=== PATIENT | male | born 1950 | race Caucasian/White ===

== ENCOUNTER → 2016-09-17 | Outpatient (CLI) | payer BC ==
--- NOTE | 2016-09-17 14:33 | DIAGNOSTIC IMAGING REPORT ---
KUB HISTORY: K21.9 Gastroesophageal reflux [id number] Bowel habit changesR1 COMPARISON: Abdomen and pelvis CT 03/13/2015. FINDINGS: The bowel gas pattern is unremarkable. There are no dilated loops of small bowel to suggest an obstruction. No ureteral calculi. Calcifications in the deep pelvis likely represent phleboliths. These remain unchanged. Cholecystectomy. The lung bases are clear. There is a 3 mm stone within the lower pole the left kidney. No right renal calculi. No pneumoperitoneum or pneumatosis. IMPRESSION: 1. Unremarkable bowel gas pattern. No evidence for bowel obstruction. 2. Stable left-sided nephrolithiasis. 3. Cholecystectomy. Electronically signed by: Chilo Cardoso M.D. 09/17/2016 2:31 PM Dictated Date/Time: 09/17/2016 2:29 PM
[2016-09-17 15:10] LABS: BLOOD UREA NITROGEN 26 mg/dl (7-18)
[2016-09-22 03:32] LABS: IGA SERUM 110 mg/dL (81-463); TIS TRANS IGA 1 U/mL (<4)
== END | disposition home or self-care (01) ==
LOC: C.RAD1850 13:47
PROVIDERS: ATTEND Registered Nurse
DX: K21.9 Gastro-esophageal reflux disease without esophagitis (principal); R14.0 Abdominal distension (gaseous); R19.4 Change in bowel habit; K42.9 Umbilical hernia without obstruction or gangrene; R10.9 Unspecified abdominal pain

== ENCOUNTER → 2016-11-27 | Outpatient (CLI) | payer BC, MEDICARE, OTHER | END | disposition home or self-care (01) | LOC: C.LABMFLN 09:22 | PROVIDERS: ATTEND Urology | DX: R97.20 Elevated prostate specific antigen [PSA] (principal); N52.9 Male erectile dysfunction, unspecified; N20.0 Calculus of kidney ==

== ENCOUNTER → 2016-12-10 | Outpatient (CLI) | payer MEDICARE ==
[2016-12-10 13:45] LABS: BASO % 0.3 %; BASO ABS # 0.02 K/uL (0-0.2); COMPLETE YES; EOS % 1.7 %; IG% 0.3 %; LYMPH % 21.4 %; LYMPH ABS # 1.47 K/uL (1.2-3.4); MEAN CELL VOLUME 94.4 fL (80-100); MEAN CORPUSCULAR HEMOGLOBIN 32.4 pg (25-34); MEAN CORPUSCULAR HGB CONC 34.3 g/dl (32-36); MEAN PLATELET VOLUME 10.8 fL (7.4-10.4); MONO % 9.9 %; NEUT % 66.4 %; PLATELET COUNT 223 K/uL (130-400); RED BLOOD COUNT 4.45 M/uL (4.7-6.1); WHITE BLOOD COUNT 6.88 K/uL (4.8-10.8)
[2016-12-10 14:11] LABS: BLOOD UREA NITROGEN 20 mg/dl (7-18); BUN/CREATININE RATIO 19.8 (10-20); CARBON DIOXIDE 30 mmol/L (21-32); CHLORIDE 102 mmol/L (98-107); GLUCOSE 105 mg/dl (70-99); POTASSIUM 4.6 mmol/L (3.5-5.1); SODIUM 138 mmol/L (136-145)
[2016-12-10 14:16] LABS: ALB/GLOB RATIO 1.3 (0.9-2); ALKALINE PHOSPHATASE 50 U/L (45-117); ALT/SGPT 32 U/L (12-78); AST/SGOT 26 U/L (15-37)
== END | disposition home or self-care (01) ==
LOC: C.LABMFLN 08:22
PROVIDERS: ATTEND Physician Assistant
DX: R55 Syncope and collapse (principal); R07.9 Chest pain, unspecified

== ENCOUNTER → 2017-06-28 | Outpatient (CLI) | payer MEDICARE | END | disposition home or self-care (01) | LOC: C.LABMFLN 11:13 | PROVIDERS: ATTEND Urology | DX: R97.20 Elevated prostate specific antigen [PSA] (principal) ==

== ENCOUNTER → 2017-07-19 | Outpatient (CLI) | payer MEDICARE ==
[2017-07-19 13:29] LABS: BLOOD UREA NITROGEN 16 mg/dl (7-18); BUN/CREATININE RATIO 13.6 (10-20); CALCIUM 8.7 mg/dl (8.5-10.1); CARBON DIOXIDE 26 mmol/L (21-32); CHLORIDE 102 mmol/L (98-107); CREATININE 1.19 mg/dl (0.60-1.40); GLUCOSE 106 mg/dl (70-99); POTASSIUM 4.6 mmol/L (3.5-5.1); SODIUM 137 mmol/L (136-145)
== END | disposition home or self-care (01) ==
LOC: C.LABMFLN 10:00
PROVIDERS: ATTEND Urology
DX: R97.20 Elevated prostate specific antigen [PSA] (principal); N40.1 Benign prostatic hyperplasia with lower urinary tract symptoms

== ENCOUNTER → 2017-08-31 | Outpatient (CLI) | payer MEDICARE | END | disposition home or self-care (01) | LOC: C.LABMFLN 10:31 | PROVIDERS: ATTEND Urology | DX: R97.20 Elevated prostate specific antigen [PSA] (principal) ==

== ENCOUNTER → 2017-11-02 | Outpatient (CLI) | payer MEDICARE | END | disposition home or self-care (01) | LOC: C.PATHSPEC 16:05 | PROVIDERS: ATTEND Dermatology | DX: L91.8 Other hypertrophic disorders of the skin (principal) ==

== ENCOUNTER → 2018-04-19 | Outpatient (CLI) | payer MEDICARE | END | disposition home or self-care (01) | LOC: C.LABMFLN 12:30 | PROVIDERS: ATTEND Family Medicine | DX: K52.9 Noninfective gastroenteritis and colitis, unspecified (principal) ==

== ENCOUNTER 2019-06-06 10:35 | Observation (INO) ==
--- NOTE | 2019-05-13 14:33 | PAT Medication Instructions ---
Medication Instructions Date of Service May 13, 2019 Home Medications tadalafil 20 mg tablet 20 mg PO UD PRN vitamins capsule 1 cap PO QAM amlodipine 10 mg PO HS aspirin [Aspir-81] 81 mg PO QAM duloxetine 60 mg PO QAM enalapril maleate 20 mg PO QAM finasteride 5 mg PO QAM flecainide 50 mg PO HS lansoprazole 30 mg PO QAM ASK your prescriber and surgeon aspirin [Aspir-81] 81 mg PO QAM DO NOT take the morning of surgery tadalafil 20 mg tablet 20 mg PO UD PRN vitamins capsule 1 cap PO QAM enalapril maleate 20 mg PO QAM Take morning of surgery With a small sip of water, OTHERWISE NOTHING TO EAT OR DRINK AFTER MIDNIGHT: duloxetine 60 mg PO QAM finasteride 5 mg PO QAM lansoprazole 30 mg PO QAM Take evening before surgery tadalafil 20 mg tablet 20 mg PO UD PRN (if needed) amlodipine 10 mg PO HS flecainide 50 mg PO HS Other Notes If you have any questions please call us at [phone] or [phone] or [phone] or [phone]
--- NOTE | 2019-05-15 10:36 | Anesthesiology Consultation ---
Date of Service May 15, 2019 Assessment & Plan (1) Encounter for pre-operative examination: Chart Review Chart Review: Acceptable Risk for Surgery (pending most recent cardiology office visit note) and Patient seen in Pre Admission Testing Teaching & Discussion Pre-Anesthesia Teaching/Discussion Notes: Instructed NPO after midnight before surgery,except medications with 15 cc of water. Medication instructions provided according to the PAT guidelines. History Surgery Operation Date: 06/06/19 07:30 Proposed Procedures p Transurethral Resection of the Prostate - José Campos MD Height/Weight Height: 6 ft 1 in Weight: 109.7 kg Allergies Allergy/AdvReac Type Severity Reaction Status Date / Time No Known Drug Allergies Allergy Unverified 05/15/19 09:23 Medications Home Medications Medication Instructions Recorded Confirmed Last Taken tadalafil 20 mg tablet 20 mg PO UD PRN tab 02/15/19 05/15/19 Unknown vitamins A,C,K-hlon-toyndn 14,320 1 cap PO QAM cap 02/15/19 05/15/19 05/05/19 unit-226 mg-200 unit capsule amlodipine 10 mg PO HS 05/05/19 05/15/19 05/04/19 aspirin [Aspir-81] 81 mg PO QAM 05/05/19 05/15/19 05/05/19 duloxetine 60 mg PO QAM 05/05/19 05/15/19 05/05/19 enalapril maleate 20 mg PO QAM 05/05/19 05/15/19 05/05/19 finasteride 5 mg PO QAM 05/05/19 05/15/19 05/05/19 flecainide 50 mg PO HS 05/05/19 05/15/19 05/04/19 lansoprazole 30 mg PO QAM 05/05/19 05/15/19 05/05/19 Past Medical History Medical History Asthma stable 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 Borderline high cholesterol Bradycardia chronic CAD (coronary artery disease) "minimal" CAD on 2011 cardiac cath per cardiology records Gastroesophageal reflux disease controlled History of blood clots LLE DVT (1975)- s/p AC "for short time" Hypertension Lung nodule multiple under surveillance Near syncope hx (2017) s/p Zio monitor with Zio monitor 04/2018 (4% of all beats were PVCs and did have a few episodes of junctional rhythm as well as PSVT- per cardiology records); no issues x 9+ months Nephrolithiasis Obesity PVC (premature ventricular contraction) Sick sinus syndrome per cardiology records Sleep apnea CPAP Exercise / Class Metabolic Activity III < 4 Walking/Shop/Light housework Past Family History Family History Mother Breast cancer Hypertension Father Hypertension Grandmother Colorectal cancer Grandfather Myocardial infarction Uncle Myocardial infarction Other Family history of COPD (chronic obstructive pulmonary disease) Past Surgical History Surgical History History of cardiac cath 2011= NO STENTS History of cholecystectomy History of colonoscopy History of endoscopy History of hernia repair B/L INGUINAL + REVISION History of neck surgery right cervical lymph node dissection History of tonsillectomy and adenoidectomy Past Anesthesia History No Hx of Anesthesia Complications and No Family Hx of Anesthesia Complications History of PONV No Hx of PONV and No Hx of Motion Sickness Social History Smoking Status: Current every day smoker tobacco type: cigarettes Smoking cigarettes per day: 1.5 PPD (PREVIOUSLY QUIT SINCE 1975, RECENTLY RESTARTED) Do You Dip or Chew Tobacco: No Hx Alcohol Use: Yes Alcohol type: beer and hard liquor alcohol intake frequency: a few times a week Hx Substance Use: No substance use type: does not use Review of Systems Chronic non-productive cough, unchanged. Reflux controlled. Patient denies chest pain, shortness of breath, wheezing, palpitations. Physical Exam Vital Signs VITALS BP 136/86 P 57 TEMP 97.8 SP02 99%RA RESP 18 PHYSICAL Full neck and c-spine range of motion. Full TMJ range of motion. TMD 3 finger breaths Mallampati Score 1 Dentition: intact, upper front "repaired" prior chipped teeth Lungs: clear throughout to auscultation Cardiac: regular rate and rhythm, no murmurs noted Spine: normal Carotid arteries: negative bruit Extremities: no edema Trimmed zeng Testing Laboratory Results 05/15/19 10:51 05/15/19 10:51 Urine Color Yellow 05/15/19 10:44 Urine Appearance Cloudy (Clear) A 05/15/19 10:44 Urine pH 7.5 (4.5-7.5) 05/15/19 10:44 Ur Specific [place] 1.019 (1.000-1.030) 05/15/19 10:44 Urine Protein Negative (Negative) 05/15/19 10:44 Urine Glucose (UA) Negative (Negative) 05/15/19 10:44 Urine Ketones Negative (Negative) 05/15/19 10:44 Urine Nitrite Positive (Negative) A 05/15/19 10:44 Ur Leukocyte Esterase Trace (Negative) H 05/15/19 10:44 Urine WBC (Auto) 10-30 /hpf (0-5) H 05/15/19 10:44 Urine RBC (Auto) 0-4 /hpf (0-4) 05/15/19 10:44 U Hyaline Cast (Auto) 0 /lpf (0-5) 05/15/19 10:44 U Epithel Cells (Auto) 0-5 /lpf (0-5) 05/15/19 10:44 Urine Bacteria (Auto) 3+ (Negative) H 05/15/19 10:44 Electrocardiogram Date: 06/25/18 SB with first degree AVB at 50bpm. Cannot rule out inferior infarct, age undetermined. Prolonged QT.* NS TWA. Chest X-Ray Date: 05/15/19 Findings: + NAD Stress Test Date: 06/02/18 Type: nuclear (Lexiscan) "Normal" Lexiscan, myocardial perfusion stress test. LVEF 65%. 68% MPHR.
--- NOTE | 2019-05-15 11:20 | XRay Report ---
XR chest Pre-admission PA/Lat CLINICAL HISTORY: Preoperative chest COMPARISON STUDY: 07/05/2013 FINDINGS: The cardiac and mediastinal contours are normal. There is no evidence of focal pulmonary co nsolidation. There is no evidence of failure. No pleural effusions are visualized.[ IMPRESSION: No active disease in the chest. Electronically signed by: Michel Francisco M.D. 05/15/2019 11:18 AM
[2019-05-15 11:33] LABS: Basophils # (auto) 0.03 K/uL (0-0.2); Basophils % (auto) 0.3 %; Eosinophils # (auto) 0.24 K/uL (0-0.5); Eosinophils % (auto) 2.6 %; Hemoglobin 15.2 g/dL (14.0-18.0); Immature Granulocytes # (auto) 0.02 K/uL (0.00-0.02); Immature Granulocytes % (auto) 0.2 %; Lymphocytes # (auto) 1.71 K/uL (1.2-3.4); Lymphocytes % (auto) 18.6 %; Mean Corpuscular Hemoglobin 33.3 pg (25-34); Mean Corpuscular Hgb Conc 33.8 g/dL (32-36); Mean Corpuscular Volume 98.5 fL (80-100); Mean Platelet Volume 11.4 fL (7.4-10.4); Monocytes # (auto) 0.64 K/uL (0.11-0.59); Neutrophils # (auto) 6.55 K/uL (1.4-6.5); Neutrophils % (auto) 71.3 %; Platelet Count 218 K/uL (130-400); RDW Coefficient of Variation 13.5 % (11.5-14.5); RDW Standard Deviation 48.3 fL (36.4-46.3); Red Blood Count 4.57 M/uL (4.7-6.1); White Blood Count 9.19 K/uL (4.8-10.8)
[2019-05-15 11:35] LABS: Appearance Urine Cloudy (Clear); Bacteria Urine Automated 3+ (Negative); Bilirubin Urine Negative (Negative); Blood Urine Negative (Negative); Cast Urine Automated 0 /lpf (0-5); Color Urine Yellow; Epithelial Cell Urine Auto 0-5 /lpf (0-5); Glucose Urine UA Negative (Negative); Ketones Urine Negative (Negative); Leukocyte Esterase Urine Trace (Negative); Nitrite Urine Positive (Negative); Protein Urine Negative (Negative); RBC Urine Automated 0-4 /hpf (0-4); Specific Gravity Urine 1.019 (1.000-1.030); Urobilinogen Urine Negative (Negative); pH Urine 7.5 (4.5-7.5)
[2019-05-15 11:57] LABS: BUN Creatinine Ratio 18.7 (10-20); Calcium 8.9 mg/dl (8.5-10.1); Creatinine Clr Calc Pharmacy 110.8 ml/min; Est GFR (Non-African American) 90.6; Potassium 4.6 mmol/L (3.5-5.1)
[~2019-06-06 10:35] MED LIST: GENTAMICIN SULFATE 160 MG in DEXTROSE 5% 100 ML IV SCH; LR 15ML/HR IV SCH
[2019-06-06] MEDS ORDERED: MIDAZOLAM HCL 1 MG/ML 2ML VIAL ONE (11:40)
[2019-06-06] MEDS ORDERED: ONDANSETRON INJ 2 MG/ML 2 ML VIAL ONE (11:40)
[2019-06-06] MEDS ORDERED: PROPOFOL IV EMULSION 10 MG/ML 20 ML VIAL IV ONE ×2 (11:40→12:58)
[2019-06-06] MEDS ORDERED: LIDOCAINE HCL 2% 2 ML VIAL/AMP(20MG/ML) INFIL ONE (11:40)
[2019-06-06] MEDS ORDERED: fentaNYL citrate 100 MCG/2 ML VIAL ONE ×2 (11:40→12:58)
[2019-06-06] MEDS ORDERED: DEXAMETHASONE SOD INJ 4 MG/ML VIAL ONE (11:40)
--- NOTE | 2019-06-06 12:09 | History & Physical Bridge Note ---
Date of Service June 06, 2019 History & Physical Bridge Note I have examined the patient, reviewed the History & Physical and in the interval since the performance of the History & Physical I have noted the following changes of clinical significance: no changes noted
[2019-06-06] MEDS ORDERED: ePHEDrine sulfate 50 MG/ML AMP IV PRN (12:11)
[2019-06-06] MEDS ORDERED: ATROPINE SULFATE 0.1 MG/ML 10ML SYR IV PRN (12:11)
[2019-06-06] MEDS ORDERED: FLUMAZENIL 0.1 MG/1 ML 10 ML VIAL IV PRN (12:11)
[2019-06-06] MEDS ORDERED: PROMETHAZINE HCL 12.5 MG in SODIUM CHLORIDE 0.9% 50 ML IV PRN (12:11)
[2019-06-06] MEDS ORDERED: LABETALOL HCL IV 5 MG/ML 20ML IV PRN (12:11)
[2019-06-06] MEDS ORDERED: NALOXONE HCL 0.4 MG/1 ML VIAL/CARP IV PRN (12:11)
[2019-06-06] MEDS ORDERED: ONDANSETRON INJ 2 MG/ML 2 ML VIAL IV PRN (12:11)
--- NOTE | 2019-06-06 14:08 | Post Operative Brief Note ---
PG Immediate Post Op with CF Date of Surgery June 06, 2019 Pre & Post Diagnosis Operation Date: 06/06/19 12:15 Pre-Op Diagnosis: Beinign Prostatic Hyperplasia with Obstruction Post-Op Diagnosis: Beinign Prostatic Hyperplasia with Obstruction Procedure Operation Date: 06/06/19 12:15 Actual Procedures p Transurethral Resection of the Prostate(Not Applicable) - José Campos MD Surgeon José Campos MD Grain Processor none Estimated Blood Loss 100 Findings Consistent with Post-Op Diagnosis Specimens Specimen Description: A: prostate chips
[2019-06-06] MEDS ORDERED: ACETAMINOPHEN 1,000 MG/100 ML VIAL IV PRN (14:09)
[2019-06-06] MEDS ORDERED: OXYCODONE/ACETAMINOPHEN 5mg/325mg TAB PO PRN (14:09)
[2019-06-06] MEDS: fentaNYL citrate 100 MCG/2 ML VIAL IV PRN ×4 (14:26→14:41)
--- NOTE | 2019-06-06 15:11 | Anesthesiology Progress Note ---
Date of Service June 06, 2019 Anesthesia Post Procedure Vital Signs Vital Signs: Temp Pulse Pulse Resp BP Pulse Ox 06/06/19 15:00 36.6 C 67 15 119/82 98 06/06/19 14:50 36.6 C 54 L 16 132/81 92 06/06/19 14:40 36.9 C 53 L 11 L 130/81 94 06/06/19 14:30 36.9 C 57 L 15 149/76 H 91 06/06/19 14:20 36.9 C 57 L 20 138/78 92 06/06/19 14:13 36.9 C 75 16 133/81 87 L 06/06/19 11:05 36.8 C 56 L 18 154/83 H 97 Pain Intensity Penis: Pain Intensity: 2 Transfer of Care Handoff Completed per policy Notes Mental Status: alert / awake / arousable Patient Amnestic to Procedure: Yes Nausea / Vomiting: adequately controlled Pain: adequately controlled Airway Patency, RR, SpO2: stable & adequate BP & HR: stable & adequate Hydration State: stable & adequate Anesthetic Complications: no major complications apparent
[2019-06-06] MEDS ORDERED: LACTATED RINGER'S 1,000 ML IV ONE (16:00)
--- NOTE | 2019-06-06 16:54 | Operative Report ---
DATE OF OPERATION: 06/06/2019 PREOPERATIVE DIAGNOSIS: Benign prostatic hypertrophy. POSTOPERATIVE DIAGNOSIS: Benign prostatic hypertrophy. SURGEON: José Campos MD. ANESTHESIA: General. PROCEDURE: TURP. INDICATIONS: The patient is a 68-year-old male with significant obstructive and irritative voiding symptoms with a large ball valve prostate with significant trabeculation of his bladder, here for a TURBT. DESCRIPTION OF THE PROCEDURE: The patient was taken to the operating room, had Venodyne stockings placed and was given general anesthesia and was given preoperative ciprofloxacin. Initially, cystoscopy was done. He had a very high bladder neck. Then, the 24-Anguillan resectoscope was placed and the ball valve was resected. Then using a combination of resection and button to fulgurate tissue, a channel from the verumontanum into the bladder was resected. At the end of the procedure, there was a clear channel from the verumontanum into the bladder without significant bleeding. All bleeding points were cauterized and then using a catheter guide, a 22-Anguillan catheter with 30 mL balloon was placed and the patient was transferred to the recovery room in stable condition with clear urine. I attest to the content of the Intraoperative Record and any orders documented therein. Any exception s are noted below.
[2019-06-06] MEDS ORDERED: ACETAMINOPHEN 325 MG TAB PO PRN (19:20)
[2019-06-06] MEDS ORDERED: INFLUENZA ADMINISTRATION CHARGE ONE (19:45)
[2019-06-06] MEDS ORDERED: INFLUENZA VACCINE HIGH DOSE 65+ 0.5 ML SYR IM ONE (19:45)
[2019-06-06] MEDS ORDERED: FLECAINIDE ACETATE 100 MG TABLET PO SCH (21:00)
[2019-06-06] MEDS ORDERED: AMLODIPINE BESYLATE 5 MG TAB PO SCH (21:00)
[2019-06-07 07:30] VITALS: BP 168/90; PULSE 59; TEMP 97.9; O2SAT 92
[2019-06-07] MEDS ORDERED: ASPIRIN 81 MG ECTAB PO SCH (09:00)
[2019-06-07] MEDS ORDERED: ENALAPRIL MALEATE 10 MG TAB PO SCH (09:00)
[2019-06-07] MEDS ORDERED: PANTOprazole 40 MG TAB PO SCH (09:00)
[2019-06-07] MEDS ORDERED: DULOXETINE HCL 60 MG CAP PO SCH (09:00)
--- NOTE | 2019-06-07 09:14 | Urology Progress Note ---
Date of Service June 07, 2019 Assessment & Plan (1) Urinary incontinence: 68 YO male POD #1 s/p TURP. Feeling well, tolerating Lin. No gross hematuria noted. Expected post op recovery and instructions reviewed. Maintain Lin until outpatient trial of void on Wednesday. Will coordinate discharge. (2) BPH w urinary obs/LUTS: Subjective 68 YO male POD #1 s/p TURP. Patient reports feeling well this morning. No pain. No nausea/vomiting. No fevers/chills. Reports Lin is minimally bothersome. Review of Systems Review of Systems: Per HPI. Physical Exam Physical Exam: WN/WD NAD. Resp effort normal. No JVD. Abd nondistended. : Lin in place, patent, draining concentrated yellow urine. No gross hematuria noted. A&Ox3, appropriate affect. Results & Data Vital Signs (Past 12 Hours) Vital Signs Temp Pulse Resp BP Pulse Ox 06/07/19 07:28 36.6 C 59 L 18 168/90 H 92 06/07/19 03:11 36.8 C 54 L 16 132/75 93 06/06/19 23:50 36.7 C 56 L 16 116/72 96 PG Care Time/CCT Total # of Minutes Spent Total Time Spent with Patient: Total time spent is greater than 50% in coordination of care (as documented) at patient's floor/unit and/or counseling patient:
--- NOTE | 2019-06-19 22:13 | Discharge Summary ---
REASON FOR ADMISSION: Benign prostatic hypertrophy for TURP. HISTORY OF PRESENTATION AND HOSPITAL COURSE: The patient is a 68-year-old male who was admitted for a transurethral resection of the prostate which was performed without complication. The patient did well overnight after the procedure with relatively clear urine. On the day of the discharge, next day, the urine was pink. He was discharged to home in stable condition with a Lin catheter in place and instructions to follow up the following day and to call for problems.
== END 2019-06-07 12:08 | disposition home or self-care (01) ==
LOC: ASU 10:35 → 3W 10:35
DX: Z82.49 Family history of ischemic heart disease and other diseases of the circulatory system; E78.00 Pure hypercholesterolemia, unspecified; K21.9 Gastro-esophageal reflux disease without esophagitis; R32 Unspecified urinary incontinence; N40.1 Benign prostatic hyperplasia with lower urinary tract symptoms; I10 Essential (primary) hypertension; Z79.82 Long term (current) use of aspirin; J45.909 Unspecified asthma, uncomplicated; G47.30 Sleep apnea, unspecified; Z79.899 Other long term (current) drug therapy

== ENCOUNTER 2024-05-30 16:14 | Observation (INO) ==
--- NOTE | 2024-05-30 16:44 | Emergency Department Note ---
Impression & Plan Chest pain, Aneurysm of ascending aorta ED Provider Note NAME: ARIANNA MARSHALL Jr AGE: 73 SEX: M : 1950 ARRIVES VIA: Walk-In INFORMANT: Patient, ED PROVIDER(S): Dante Alvarez DO CHIEF COMPLAINT: Chest pain HPI: The patient is a 73-year-old male who presented to the emergency department for an evaluation of chest pain. The patient describes left-sided chest pain that he has been experiencing over the last few months. The patient has a history of an aortic aneurysm he also has a history of an incompetent heart valve. He had an echocardiogram done by his dry pan charger today and was sent to the emergency department directly but he is unsure exactly why. The patient thinks he was sent to be admitted. ROS: See above HPI for pertinent positives & negatives. A total of 10 systems reviewed and were otherwise negative. PAST MEDICAL HISTORY: See Below PAST SURGICAL HISTORY: See Below FAMILY HISTORY: See Below SOCIAL HISTORY: See Below HOME MEDICATIONS: See Below ALLERGIES: See Below VITALS: See Below PHYSICAL EXAMINATION: GENERAL: Patient is awake alert in no acute distress patient is resting comfortably and showing no signs of anxiety EYES: The conjunctivae are clear. The pupils are round and reactive. EARS, NOSE, MOUTH AND THROAT: The nose is without any evidence of any deformity. NECK: The neck is nontender and supple. RESPIRATORY: Normal respiratory effort is noted there is no evidence of wheezing rhonchi or rales CARDIOVASCULAR: Regular rate and rhythm noted there no murmurs rubs or gallops normal S1 normal S2. GASTROINTESTINAL: The abdomen is soft. Abdomen is nontender. MUSCULOSKELETAL/EXTREMITIES: There is no evidence of gross deformity full range of motion is noted in the hips and shoulders. SKIN: There is no obvious evidence of any rash. There are no petechiae, pallor or cyanosis noted. Pulses are symmetric in both wrist. NEUROLOGIC: Patient is awake alert and oriented x3 MEDICAL DECISION MAKING: The patient is a 73-year-old male who presented to the emergency department at the request of his primary dry pan charger for an evaluation of chest pain. The patient has a history of chest pain in the past. He also has a history of an ascending aortic aneurysm. The patient started having discomfort which was changed compared to previous. The patient received an echocardiogram today and was referred to the emergency department for further evaluation. I discussed the patient's condition with his primary dry pan charger. I also discussed his condition with the on-call [facility]. At this time the patient's EKG does not show any acute change from previous. The patient's CAT scan does not show any signs of aortic dissection or rupture. The patient's troponin was negative despite having ongoing symptoms for greater than 6 hours. I discussed inpatient management at the patient. At this time I do feel that he would be a better candidate for inpatient management. Likely his primary dry pan charger will look to have him evaluated regarding the ascending aortic aneurysm. Triage Nursing notes reviewed. Prior medical records reviewed Vital Signs: reviewed and remarkable for no significant abnormalities Differential diagnosis: Cardiac ischemia, aortic dissection, pulmonary embolism, pneumothorax, pneumonia, pericarditis, myocarditis, esophageal rupture, GERD, cholecystitis, pancreatitis, musculoskeletal, as well as other pathologies. ER treatment provided: See below Diagnostics interpreted by me: ECG: EKG was obtained in the emergency department. My interpretation is sinus bradycardia with first-degree AV block. There is no ectopy. There is no acute ST segment abnormalities noted. This was carried to a tracing from June 18, 2013. No changes were noted. Cardiac Monitoring: An order was placed for continuous cardiac monitoring. The monitor shows a rate of 51 bpm with sinus bradycardia. Laboratory studies: As stated above and show below. Imaging studies: See below. Radiographic imaging was reviewed by myself Consultation(s): I discussed this case with Dr. Bowser [facility]. I discussed this case with Dr. Spann who is the patient's primary dry pan charger Past Med/Surg History Problem List (Updated 05/30/24 @ 23:46 by Dante Alvarez DO) Aneurysm of ascending aorta (Acute) Chest pain (Acute) Tobacco use Hypercholesterolemia Aortic valve insufficiency Lumbago Thoracic compression fracture Mild T8 Myofascial muscle pain Thoracic back pain Lesion of right [place] kidney Diverticulosis Diarrhea Abdominal distension Left upper quadrant pain Cyst, sinus nasal Cervicalgia Headache Chest pain Thoracic aortic aneurysm Erectile dysfunction Nephrolithiasis Fatigue Body aches Cough Nasal congestion Elevated glucose Cataracts, bilateral Preoperative examination TMJ (temporomandibular joint disorder) Otalgia Impacted cerumen, right ear Laura's edema of vocal folds Seasonal allergies Cough Sinusitis Sleep apnea CPAP Hypertension Gastroesophageal reflux disease controlled Sharif esophagus Bradycardia chronic Sick sinus syndrome per cardiology records Asthma stable BPH w urinary obs/LUTS Urge incontinence of urine DENIES Impotence, organic NOT REPORTED BY PT AT PAT INTERVIEW Yoandy's disease DENIES Exudative age-related macular degeneration NOT REPORTED BY PT Elevated prostate specific antigen (PSA) Dermatofibroma Anxiety Allergic rhinitis Actinic keratosis Family history of COPD (chronic obstructive pulmonary disease) History of back pain History of chest pain History of cholesteatoma History of hyperlipidemia Medical History History of diverticulitis CAD (coronary artery disease) "minimal" CAD on 2011 cardiac cath per cardiology records Obesity Borderline high cholesterol Lung nodule multiple under surveillance History of blood clots LLE DVT (1975)- s/p AC "for short time" Near syncope hx (2017) s/p Zio monitor with Zio monitor 04/2018 (4% of all beats were PVCs and did have a few episodes of junctional rhythm as well as PSVT- per cardiology records); no issues x 9+ months Larynx edema BPH with obstruction/lower urinary tract symptoms Nephrolithiasis PVC (premature ventricular contraction) Surgical History S/P TURP (status post transurethral resection of prostate) 06/06/[address] José Campos History of cardiac cath 2011= NO STENTS History of endoscopy History of colonoscopy History of cholecystectomy History of tonsillectomy and adenoidectomy History of neck surgery right cervical lymph node dissection History of hernia repair B/L INGUINAL + REVISION Family History Mother Breast cancer Hypertension Father Hypertension Grandmother Colorectal cancer Grandfather Myocardial infarction Uncle Myocardial infarction Other Allergies Cancer Family history of COPD (chronic obstructive pulmonary disease) No family history of adverse response to anesthesia No family history of bleeding disorder Denies family history of Ovarian cancer Prostate cancer Social History Smoking Status: Current every day smoker Tobacco Type: Cigarettes Age Started Using Tobacco: 16; Age Quit Using Tobacco: 23; packs per day: 1; Cigarettes Per Day: 10 (past 7 years); Second Hand Exposure: No; Do You Dip or Chew Tobacco: No; Hx Alcohol Use: Yes Alcohol type: beer and hard liquor Hx Substance Use: No Preferred Language: Samoan Communication Ability: Effective Visual Impairment: Limited Hearing Ability: Normal Beauty Advisor Required: No Beliefs That Will Affect Care: None marital status: Single Current Living Situation: Spouse Current Living Situation Comment: [facility] current occupational status: retired 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 How many Children do You have: 3 Feels Safe at Home: Yes Safety Concerns: Feels Safe At This Time Childhood Exposure to Second-Hand Smoke: Yes Diet: low carbohydrate and regular caffeine: Yes (coffee - 2 cups) during the past year weight has: increased > 10 lbs Dental Care, Regularly: No Physical Activity Frequency: 1-2 Times per Week Physical Activity Frequency Comment: When weather permits walking Seatbelt Use: always Sunscreen Use: Yes Do you think of yourself as: straight/heterosexual Gender Identity: Male Assistive Devices: Glasses Allergies Allergies Allergy/AdvReac Type Severity Reaction Status Date / Time No Known Drug Allergies Allergy Unknown Verified 05/30/24 16:51 Home Meds Home Medications Medication Instructions Recorded Confirmed aspirin 81 mg tablet,delayed 81 mg PO DAILY 09/13/19 05/30/24 release (Adult Low Dose Aspirin) fexofenadine 180 mg tablet 60 mg PO DAILY 02/13/22 05/30/24 (Aleshia Allergy) vitamins A,C,W-bsna-bhcfpr 4,296 1 cap PO BID 04/19/24 05/30/24 mcg-226 mg-90 mg capsule (PreserVision AREDS) atorvastatin 10 mg tablet 10 mg PO DAILY 05/30/24 05/30/24 duloxetine 60 mg capsule,delayed 60 mg PO DAILY 05/30/24 05/30/24 release Previous Rx's Medication Instructions Recorded albuterol sulfate 90 mcg/actuation 2 puff inhalation QID PRN 11/01/20 aerosol inhaler shortness of breath or wheezing #18 grams baclofen 10 mg tablet 10 mg PO BID PRN pain/spasm #60 03/19/23 tabs amlodipine 10 mg tablet 10 mg PO HS #90 tabs 12/14/23 buspirone 7.5 mg tablet 7.5 mg PO BID #60 tabs 12/14/23 famotidine 20 mg tablet 20 mg PO BID #60 tabs 12/14/23 hydrochlorothiazide 25 mg tablet 25 mg PO DAILY #90 tabs 12/14/23 lansoprazole 30 mg capsule,delayed 30 mg PO QAM #90 caps 12/14/23 release losartan 100 mg tablet 100 mg PO DAILY #90 tabs 12/14/23 montelukast 10 mg tablet 10 mg PO DAILY #90 tabs 12/14/23 metoprolol succinate 25 mg 25 mg PO DAILY #90 tabs 04/11/24 tablet,extended release 24 hr tadalafil 20 mg tablet 20 mg PO DAILY PRN sexual activity 04/17/24 #20 tabs Results & Data (ED) Vital Signs Vital Signs - 24 hr 05/30/24 16:25 05/30/24 16:45 05/30/24 16:47 Temperature 36.5 C Temperature Source Temporal Artery Scan Pulse Rate 57 L 52 L Pulse Rate [Apical] 51 L Pulse Rhythm Regular Pulse Rhythm [Apical] Regular Pulse Strength [Apical] Respiratory Rate 14 20 20 Respiratory Effort / Characteristics Non-Labored Spontaneous Respiratory Depth Normal Respiratory Pattern Regular Blood Pressure 107/69 Blood Pressure [Right Arm] 151/84 H Blood Pressure Mean 81 Blood Pressure Mean [Right Arm] 106 Blood Pressure Position [Right Arm] Pulse Oximetry 99 98 97 Oxygen Delivery Method Room Air Room Air Room Air Sepsis New/Unexplained Change in Mental Status No Sepsis Action Taken by Nursing No Action Required 05/30/24 17:02 05/30/24 17:39 05/30/24 17:45 Temperature Temperature Source Pulse Rate 56 L Pulse Rate [Apical] 56 L 49 L Pulse Rhythm Pulse Rhythm [Apical] Regular Pulse Strength [Apical] Normal Respiratory Rate 18 22 Respiratory Effort / Characteristics Non-Labored Spontaneous Respiratory Depth Normal Respiratory Pattern Regular Blood Pressure Blood Pressure [Right Arm] 146/98 H 143/88 H Blood Pressure Mean Blood Pressure Mean [Right Arm] 114 106 Blood Pressure Position [Right Arm] Lying Pulse Oximetry 97 95 Oxygen Delivery Method Room Air Sepsis New/Unexplained Change in Mental Status Sepsis Action Taken by Nursing 05/30/24 18:43 Temperature Temperature Source Pulse Rate Pulse Rate [Apical] 49 L Pulse Rhythm Pulse Rhythm [Apical] Pulse Strength [Apical] Respiratory Rate 20 Respiratory Effort / Characteristics Non-Labored Spontaneous Respiratory Depth Normal Respiratory Pattern Blood Pressure Blood Pressure [Right Arm] 153/86 H Blood Pressure Mean Blood Pressure Mean [Right Arm] 108 Blood Pressure Position [Right Arm] Pulse Oximetry 98 Oxygen Delivery Method Room Air Sepsis New/Unexplained Change in Mental Status Sepsis Action Taken by Jail Medications Current Medication List: was personally reviewed by me Laboratory Data Attestation: I reviewed the patient's lab results. 05/30/24 16:40 05/30/24 16:40 Lab Results 05/30/24 05/30/24 Range/Units 16:40 16:57 WBC 10.61 (4.8-10.8) K/ul RBC 4.74 (4.70-6.10) M/uL Hgb 15.9 (14.0-18.0) g/dl POC Hgb 16.0 (14.0-18.0) g/dl Hct 45.5 (42.0-52.0) % POC Hct 47 (42-52) % MCV 96.0 (80.0-100.0) fL MCH 33.5 (25.0-34.0) pg MCHC 34.9 (32.0-36.0) g/dL RDW Std Deviation 45.1 (36.4-46.3) fL RDW Coeff of Guillermo 12.6 (11.5-14.5) % Plt Count 237 (130-400) K/uL MPV 11.3 (9.4-12.4) fL Immature Gran % (Auto) 0.5 % Neut % (Auto) 63.3 % Lymph % (Auto) 23.2 % [place] % (Auto) 8.3 % Eos % (Auto) 4.2 % Baso % (Auto) 0.5 % Neut # (Auto) 6.72 H (1.40-6.50) K/uL Lymph # (Auto) 2.46 (1.20-3.40) K/uL [place] # (Auto) 0.88 H (0.11-0.59) K/uL Eos # (Auto) 0.45 (0.00-0.50) K/uL Baso # (Auto) 0.05 (0.00-0.20) K/uL Immature Gran # (Auto) 0.05 (0.01-0.20) K/uL PT 10.4 (9.0-12.0) Seconds INR 1.0 (0.9-1.1) APTT 27 (21-31) Seconds PTT Ratio 1.0 POC Sodium 139 (135-144) mmol/L Sodium 138 (136-145) mmol/L POC Potassium 4.1 (3.3-5.0) mmol/L Potassium 3.9 (3.5-5.1) mmol/L POC Chloride 98 L (101-112) mmol/L Chloride 100 (98-107) mmol/L Carbon Dioxide 30 (21-32) mmol/L POC Total CO2 30 (24-31) mmol/L Anion Gap 8 (3-11) POC Anion Gap 16.0 (16-25) mmol/L POC BUN 15 (7-18) mg/dl BUN 14 (6-23) mg/dl Creatinine 0.98 (0.6-1.4) mg/dl POC Creatinine 1.1 (0.6-1.3) mg/dl Est Cr Clr Drug Dosing 93.4 ml/min Est GFR ( Amer) 88.9 ml/min Est GFR (Non-Af Amer) 76.7 ml/min BUN/Creatinine Ratio 14.3 (10-20) Glucose 97 (70-99(Fasting)) mg/dl POC Glucose (other) 96 (70-99) mg/dl Calcium 9.4 (8.6-10.3) mg/dl POC Ioniz Calcium Kemar 1.13 (1.12-1.32) mmol/l Total Bilirubin 0.9 (0.2-1.0) mg/dl AST 24 (13-39) U/L ALT 26 (7-52) U/L Alkaline Phosphatase 65 (34-104) U/L Troponin I High Sens 13.1 (0-20) pg/ml Total Protein 7.0 (6.0-8.3) gm/dl Albumin 4.7 (3.4-5.0) gm/dl Globulin 2.3 L (2.5-4.0) gm/dl Albumin/Globulin Ratio 2.0 (0.9-2) Administered Medications Acetaminophen (Acetaminophen 325 Mg Tab) 650 mg PO Q4H PRN PRN Reason: Pain or Fever Stop: 06/29/24 21:38 Last Admin: 05/30/24 22:10 Dose: 650 mg Documented By: ANIA Amlodipine Besylate (Amlodipine Besylate 5 Mg Tab) 10 mg PO HS ROXIE Stop: 06/29/24 21:38 Last Admin: 05/30/24 23:07 Dose: 10 mg Documented By: ANIA Buspirone HCl (Buspirone 7.5 Mg Tab) 7.5 mg PO BID ROXIE Stop: 06/29/24 21:38 Last Admin: 05/30/24 23:08 Dose: 7.5 mg Documented By: ANIA Discontinued Medications Al Hydrox/Mg Hydrox/Simethicone (Aluminum/Magnesium Susp 30 Ml Udc) 15 ml PO NOW STA Stop: 05/30/24 19:01 Last Admin: 05/30/24 19:17 Dose: 15 ml Documented By: Aspirin (Aspirin Chew 324 Mg) 324 mg PO NOW STA Stop: 05/30/24 18:07 Last Admin: 05/30/24 18:20 Dose: 324 mg Documented By: Famotidine (Famotidine 20 Mg Tab) 20 mg PO NOW ONE Stop: 05/30/24 19:05 Last Admin: 05/30/24 19:17 Dose: 20 mg Documented By: Ioversol (Optiray 320 125ml) 116 ml IV ONCE ONE Stop: 05/30/24 17:03 Last Admin: 05/30/24 17:03 Dose: 116 ml Documented By: LARISA Imaging Data Attestation: I personally reviewed and interpreted this imaging study as follows: My Impression: 1 view chest x-ray was obtained in the emergency department. My interpretation is no free air or definite infiltrate, final report below. CT of the chest was obtained in the emergency department. There is no signs of free air or definite infiltrate, final report below. Radiologist's Impression: Chest X-Ray 05/30/24 16:32 XR chest 1V not portable CLINICAL HISTORY: Chest pain, nonspecific TECHNIQUE: Single frontal radiograph of the chest was obtained. Comparison: Comparison is made to rib series 03/19/2023 FINDINGS: Exam is limited by underpenetration. Cardiomegaly is noted. The lungs are clear. No evidence of pleural effusion or pneumothorax. IMPRESSION: No acute chest disease. ACT 112: Negative or not required by law. Electronically signed by: Antony Barrett M.D. 05/30/2024 5:01 PM Chest CTA 05/30/24 16:34 CT angio chest dissec wo/w con CLINICAL HISTORY: ?dissection, ref by Dr Spann TECHNIQUE: Multidetector row helical CT of the chest was performed before and after injection of IV contrast. Coronal, sagittal, and MIP reformations were obtained. Automated dose lowering techniques and/or adjustment according to patient size were utilized for this exam. CT DOSE: 1889.22 mGy.cm Comparison: None available at the time of this dictation. FINDINGS: Lungs and pleura: Normal. Heart and pericardium: Heart size is normal. No pericardial effusion. Vessels: No aortic dissection or intramural hematoma is seen. Ascending aorta measures up to 49 mm in diameter. Mediastinum and flash: Unremarkable. Chest wall and lower neck: Unremarkable. Abdomen: A hiatal hernia is seen. Bones: Degenerative changes in the thoracic spine. IMPRESSION: No acute abnormality and in particular no evidence of acute aortic injury. ACT 112: Negative or not required by law. Electronically signed by: Antony Barrett M.D. 05/30/2024 5:28 PM Discharge Plan Visit Data Chief Complaint: Abnormal Labs/Diagnostic Testing Stated Complaint: ANURISM/LEAKING VALVE, NEEDS CT, DOC REF, ABN LABS ED Provider: Dante Alvarez Discharge Problem: Chest pain, Aneurysm of ascending aorta Patient Disposition: Admitted As Inpatient Discharge Instructions Interventions: ED Discharge Assessment Last Done: 05/30/24 21:28 Discharge Problem: Chest pain Qualifiers: Chest pain type: unspecified Qualified Code(s): R07.9 - Chest pain, unspecified Aneurysm of ascending aorta Qualifiers: Presence of rupture: without rupture Qualified Code(s): I71.21 - Aneurysm of the ascending aorta, without rupture
--- NOTE | 2024-05-30 17:02 | XRay Report ---
XR chest 1V not portable CLINICAL HISTORY: Chest pain, nonspecific TECHNIQUE: Single frontal radiograph of the chest was obtained. Comparison: Comparison is made to rib series 03/19/2023 FINDINGS: Exam is limited by underpenetration. Cardiomegaly is noted. The lungs are clear. No evidence of pleur al effusion or pneumothorax. IMPRESSION: No acute chest disease. ACT 112: Negative or not required by law. Electronically signed by: Antony Barrett M.D. 05/30/2024 5:01 PM
[2024-05-30] MEDS: OPTIRAY 320 125ml IV ONE (17:03)
[2024-05-30 17:09] LABS: iSTAT Creatinine 1.1 mg/dl (0.6-1.3); iSTAT Ionized Calcium 1.13 mmol/l (1.12-1.32); iSTAT Potassium 4.1 mmol/L (3.3-5.0)
[2024-05-30 17:18] LABS: Basophils # (auto) 0.05 K/uL (0.00-0.20); Basophils % (auto) 0.5 %; Eosinophils # (auto) 0.45 K/uL (0.00-0.50); Eosinophils % (auto) 4.2 %; Hematocrit (blood only) 45.5 % (42.0-52.0); Hemoglobin 15.9 g/dl (14.0-18.0); Immature Granulocytes # (auto) 0.05 K/uL (0.01-0.20); Immature Granulocytes % (auto) 0.5 %; Lymphocytes # (auto) 2.46 K/uL (1.20-3.40); Lymphocytes % (auto) 23.2 %; Mean Corpuscular Hemoglobin 33.5 pg (25.0-34.0); Mean Corpuscular Hgb Conc 34.9 g/dL (32.0-36.0); Mean Platelet Volume 11.3 fL (9.4-12.4); Monocytes # (auto) 0.88 K/uL (0.11-0.59); Monocytes % (auto) 8.3 %; Neutrophils # (auto) 6.72 K/uL (1.40-6.50); Neutrophils % (auto) 63.3 %; Platelet Count 237 K/uL (130-400); RDW Coefficient of Variation 12.6 % (11.5-14.5); RDW Standard Deviation 45.1 fL (36.4-46.3); Red Blood Count 4.74 M/uL (4.70-6.10); White Blood Count 10.61 K/ul (4.8-10.8)
--- NOTE | 2024-05-30 17:30 | CT Scan Report ---
CT angio chest dissec wo/w con CLINICAL HISTORY: ?dissection, ref by Dr Spann TECHNIQUE: Multidetector row helical CT of the chest was performed before and after injection of IV c ontrast. Coronal, sagittal, and MIP reformations were obtained. Automated dose lowering techniques an d/or adjustment according to patient size were utilized for this exam. CT DOSE: 1889.22 mGy.cm Comparison: None available at the time of this dictation. FINDINGS: Lungs and pleura: Normal. Heart and pericardium: Heart size is normal. No pericardial effusion. Vessels: No aortic dissection or intramural hematoma is seen. Ascending aorta measures up to 49 mm in diameter. Mediastinum and flash: Unremarkable. Chest wall and lower neck: Unremarkable. Abdomen: A hiatal hernia is seen. Bones: Degenerative changes in the thoracic spine. IMPRESSION: No acute abnormality and in particular no evidence of acute aortic injury. ACT 112: Negative or not required by law. Electronically signed by: Antony Barrett M.D. 05/30/2024 5:28 PM
[2024-05-30 17:34] LABS: Albumin Level 4.7 gm/dl (3.4-5.0); BUN Creatinine Ratio 14.3 (10-20); Bilirubin,Total 0.9 mg/dl (0.2-1.0); Calcium 9.4 mg/dl (8.6-10.3); Creatinine Clr Calc Pharmacy 93.4 ml/min; Est GFR (African American) 88.9 ml/min; Est GFR (Non-African American) 76.7 ml/min; Globulin 2.3 gm/dl (2.5-4.0); Potassium 3.9 mmol/L (3.5-5.1)
[2024-05-30 17:40] LABS: Troponin I High Sensitivity 13.1 pg/ml (0-20)
[2024-05-30 17:48] LABS: Partial Thromboplastin Time 27 Seconds (21-31); Prothrombin Time 10.4 Seconds (9.0-12.0)
[2024-05-30] MEDS: ASPIRIN CHEW 324 MG PO STA (18:20)
--- NOTE | 2024-05-30 18:37 | History & Physical Report ---
Date of Service May 30, 2024 Assessment & Plan (1) Chest pain: Plan: Worsening chest pain at rest and with exertion x 1 month Patient saw Cardiology (Dr. Spann) on 05/30 for an echocardiogram, and was sent in due to concern for progression of CP Chest CTA on arrival did not show acute abnormality and in particular no evidence of acute aortic injury Ascending aorta measuring up to 49mm in diameter Prior CTA chest on 12/25/23 measured ascending aorta at ~49mm (unchanged) Troponin WNL on arrival; repeat pending Aspirin 324 mg p.o. given in the ED Hold further aspirin for now; patient reports he does take 81 mg daily Manual BP taken in both arms approximately equivalent 124/68 and left arm; 110/68 and right arm Continuous telemetry monitoring Cardiology consult appreciated A.m. CBC, BMP, fasting lipid panel, troponin (2) Thoracic aortic aneurysm: Plan: See above (3) Tobacco use: Plan: Everyday tobacco cigarette smoker; 0.5 PPD Continue to encourage cessation (4) Sleep apnea: Plan: CPAP HS (5) Gastroesophageal reflux disease: Plan: Continue famotidine + PPI (6) Hypertension: Plan: Continue metoprolol, losartan, amlodipine, HCTZ Plan Disposition: Obs - admit to PCU telemetry Full code Heart healthy, low-sodium diet VTE PPx: SCDs History of Present Illness Chief Complaint: Chest pain Primary Care Provider: DO Paul Patel is a 73-year-old male with PMH of thoracic aortic aneurysm, HLD, COPD, anxiety, Sharif's esophagus, sick sinus syndrome, HTN, sleep apnea, aortic valve insufficiency, and hypercholesteremia. He presented at the behest of Dr. Spann on 05/30 over concern for a progression of chest pain. Patient has been having intermittent, midsternal/left-sided chest pain that has been worsening over the past month. He endorses chest pain both at rest and with exertion. He also has associated dyspnea on exertion. While the chest pain was intermittent before, he reports that recently it has been constant. He characterizes it as a dull, achy pain that he rates rates it 6/10 at present; 8/10 at worst. Radiation to the left shoulder, and occasionally between the shoulder blades. He reports he does have a "stabbing" pain between his shoulder blades at least once per week. He reports he does take Tylenol (3 tablets at a time) at home, which alleviates the pain. He reports he has had a significant headache today; he does have a history of headaches, but today it is worse for him. No recent injuries to the chest wall, flanks, or back. Additional symptoms include numbness and tingling in his arms over the past month. Patient reports that he took all of his regular morning medications today; no recent change in medicatio ns. No supplemental oxygen at baseline, but he does use CPAP at night. He is a current everyday tobacco cigarette smoker; 0.5 PPD. He also reports daily alcohol use; last drink was last night on 05/29; he reports he was drinking [place] apple vodka (3 drinks) +1 beer; he averages around 4 drinks per day. No PMH of NH or diabetes to his knowledge. History of DVT/PE back in the . He does have a history of hypertension and hyperlipidemia. No prior thoracic surgeries. Patient is hypertensive at 153/86 and bradycardic at 49 bpm at time of admission. ED course: Aspirin 324 mg p.o. ROS: Patient endorses midsternal/left-sided chest pain at rest, headache, night sweats, SOB at rest and with exertion, intermittent heart racing, dry cough, diarrhea x 2 days, and numbness and tingling in his arms that has been new for him over the past month. Patient denies fever, chills, dizziness/lightheadedness, chest palpitations, hemoptysis, abdominal pain, N/V, melena, burning with urination, or blood in the urine or stool. Allergies Allergy/AdvReac Type Severity Reaction Status Date / Time No Known Drug Allergies Allergy Unknown Verified 05/30/24 16:51 Home Medications Medication Instructions Recorded Confirmed Type aspirin 81 mg tablet,delayed 81 mg PO DAILY 09/13/19 05/30/24 History release (Adult Low Dose Aspirin) albuterol sulfate 90 mcg/actuation 2 puff inhalation QID PRN 11/01/20 05/30/24 Rx aerosol inhaler shortness of breath or wheezing #18 grams fexofenadine 180 mg tablet 60 mg PO DAILY 02/13/22 05/30/24 History (Aleshia Allergy) baclofen 10 mg tablet 10 mg PO BID PRN pain/spasm #60 03/19/23 05/30/24 Rx tabs amlodipine 10 mg tablet 10 mg PO HS #90 tabs 12/14/23 05/30/24 Rx buspirone 7.5 mg tablet 7.5 mg PO BID #60 tabs 12/14/23 05/30/24 Rx famotidine 20 mg tablet 20 mg PO BID #60 tabs 12/14/23 05/30/24 Rx hydrochlorothiazide 25 mg tablet 25 mg PO DAILY #90 tabs 12/14/23 05/30/24 Rx lansoprazole 30 mg capsule,delayed 30 mg PO QAM #90 caps 12/14/23 05/30/24 Rx release losartan 100 mg tablet 100 mg PO DAILY #90 tabs 12/14/23 05/30/24 Rx montelukast 10 mg tablet 10 mg PO DAILY #90 tabs 12/14/23 05/30/24 Rx metoprolol succinate 25 mg 25 mg PO DAILY #90 tabs 04/11/24 05/30/24 Rx tablet,extended release 24 hr tadalafil 20 mg tablet 20 mg PO DAILY PRN sexual activity 04/17/24 05/30/24 Rx #20 tabs vitamins A,C,B-bwpp-vjhkgu 4,296 1 cap PO BID 04/19/24 05/30/24 History mcg-226 mg-90 mg capsule (PreserVision AREDS) atorvastatin 10 mg tablet 10 mg PO DAILY 05/30/24 05/30/24 History duloxetine 60 mg capsule,delayed 60 mg PO DAILY 05/30/24 05/30/24 History release Past Med/Surg History Problem List (Updated 05/30/24 @ 23:46 by Dante Alvarez DO) Aneurysm of ascending aorta (Acute) Chest pain (Acute) Tobacco use Hypercholesterolemia Aortic valve insufficiency Lumbago Thoracic compression fracture Mild T8 Myofascial muscle pain Thoracic back pain Lesion of right knik kidney Diverticulosis Diarrhea Abdominal distension Left upper quadrant pain Cyst, sinus nasal Cervicalgia Headache Chest pain Thoracic aortic aneurysm Erectile dysfunction Nephrolithiasis Fatigue Body aches Cough Nasal congestion Elevated glucose Cataracts, bilateral Preoperative examination TMJ (temporomandibular joint disorder) Otalgia Impacted cerumen, right ear Laura's edema of vocal folds Seasonal allergies Cough Sinusitis Sleep apnea CPAP Hypertension Gastroesophageal reflux disease controlled Sharif esophagus Bradycardia chronic Sick sinus syndrome per cardiology records Asthma stable BPH w urinary obs/LUTS Urge incontinence of urine DENIES Impotence, organic NOT REPORTED BY PT AT PAT INTERVIEW [place]'s disease DENIES Exudative age-related macular degeneration NOT REPORTED BY PT Elevated prostate specific antigen (PSA) Dermatofibroma Anxiety Allergic rhinitis Actinic keratosis Family history of COPD (chronic obstructive pulmonary disease) History of back pain History of chest pain History of cholesteatoma History of hyperlipidemia Medical History History of diverticulitis CAD (coronary artery disease) "minimal" CAD on 2011 cardiac cath per cardiology records Obesity Borderline high cholesterol Lung nodule multiple under surveillance History of blood clots LLE DVT (1975)- s/p AC "for short time" Near syncope hx (2017) s/p Zio monitor with Zio monitor 04/2018 (4% of all beats were PVCs and did have a few episodes of junctional rhythm as well as PSVT- per cardiology records); no issues x 9+ months Larynx edema BPH with obstruction/lower urinary tract symptoms Nephrolithiasis PVC (premature ventricular contraction) Surgical History S/P TURP (status post transurethral resection of prostate) 06/06/[address] José Campos History of cardiac cath 2011= NO STENTS History of endoscopy History of colonoscopy History of cholecystectomy History of tonsillectomy and adenoidectomy History of neck surgery right cervical lymph node dissection History of hernia repair B/L INGUINAL + REVISION Family History Mother Breast cancer Hypertension Father Hypertension Grandmother Colorectal cancer Grandfather Myocardial infarction Uncle Myocardial infarction Other Allergies Cancer Family history of COPD (chronic obstructive pulmonary disease) No family history of adverse response to anesthesia No family history of bleeding disorder Denies family history of Ovarian cancer Prostate cancer Social History Smoking Status: Current every day smoker Tobacco Type: Cigarettes Age Started Using Tobacco: 16; Age Quit Using Tobacco: 23; packs per day: 1; Cigarettes Per Day: 10 (past 7 years); Second Hand Exposure: No; Do You Dip or Chew Tobacco: No; Hx Alcohol Use: Yes Alcohol type: beer and hard liquor Hx Substance Use: No Preferred Language: Mauritian Communication Ability: Effective Visual Impairment: Limited Hearing Ability: Normal Blood Or Blood Bank Technician Required: No Beliefs That Will Affect Care: None marital status: Single Current Living Situation: Spouse Current Living Situation Comment: [facility]IR[facility]RIEND current occupational status: retired 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 How many Children do You have: 3 Feels Safe at Home: Yes Safety Concerns: Feels Safe At This Time Childhood Exposure to Second-Hand Smoke: Yes Diet: low carbohydrate and regular caffeine: Yes (coffee - 2 cups) during the past year weight has: increased > 10 lbs Dental Care, Regularly: No Physical Activity Frequency: 1-2 Times per Week Physical Activity Frequency Comment: When weather permits walking Seatbelt Use: always Sunscreen Use: Yes Do you think of yourself as: straight/heterosexual Gender Identity: Male Assistive Devices: Glasses Review of Systems Review of Systems: See HPI above Physical Exam Physical Exam: General: no acute distress; anxious; non-toxic appearing; well-nourished; cooperative; SpO2 95% on RA HEENT: normocephalic, atraumatic; no scleral icterus; PERRLA; vision and hearing grossly intact Neck: supple; no lymphadenopathy; trachea midline Skin: warm, dry without signs of tenting; no cyanosis; no rashes, bruising, lesions, or erythema noted CV: Left-sided chest wall is mildly TTP, but he reports this does not reproduce the same pain he is feeling; RRR; S1/S2 normal; no murmurs/rubs/gallops; pulses intact and symmetric at radial, DP, and PT; no rashes or bruising on the chest wall/abdomen/flanks/upper back Lungs: no acute respiratory distress; symmetrical chest wall expansion; clear breath sounds across all lung saab w/o adventitious sounds; no wheezing ABD: Soft, NTP; BS present; no rebound/guarding; no distention MSK: no tics or fasciculations; no edema noted in the LEs b/l, nonerythematous Neuro: A&Ox3; normal mood and affect; fluent speech; no focal deficits; patient reports that sensation is intact and symmetric in the upper extremities and lower extremities bilaterally BP in the right arm 110/68 BP in the left arm 124/68 Assessed in both arms using a large blood pressure cuff Results & Data Results & Data Vital Signs (Past 12 Hours) Vital Signs Temp Pulse Pulse Resp BP BP Pulse Ox 05/30/24 17:45 49 L 22 143/88 H 95 05/30/24 17:39 56 L 18 146/98 H 97 05/30/24 17:02 56 L 05/30/24 16:47 52 L 20 97 05/30/24 16:45 51 L 20 151/84 H 98 05/30/24 16:25 36.5 C 57 L 14 107/69 99 O2 Del Method 05/30/24 17:45 Room Air 05/30/24 17:39 05/30/24 17:02 05/30/24 16:47 Room Air 05/30/24 16:45 Room Air 05/30/24 16:25 Room Air Laboratory Results Abnormal lab results 05/30/24 05/30/24 Range/Units 16:40 16:57 Neut # (Auto) 6.72 H (1.40-6.50) K/uL Jackson # (Auto) 0.88 H (0.11-0.59) K/uL POC Chloride 98 L (101-112) mmol/L Globulin 2.3 L (2.5-4.0) gm/dl Diagnostic Findings Chest X-Ray 05/30/24 16:32 XR chest 1V not portable CLINICAL HISTORY: Chest pain, nonspecific TECHNIQUE: Single frontal radiograph of the chest was obtained. Comparison: Comparison is made to rib series 03/19/2023 FINDINGS: Exam is limited by underpenetration. Cardiomegaly is noted. The lungs are clear. No evidence of pleural effusion or pneumothorax. IMPRESSION: No acute chest disease. ACT 112: Negative or not required by law. Electronically signed by: Antony Barrett M.D. 05/30/2024 5:01 PM Chest CTA 05/30/24 16:34 CT angio chest dissec wo/w con CLINICAL HISTORY: ?dissection, ref by Dr Spann TECHNIQUE: Multidetector row helical CT of the chest was performed before and after injection of IV contrast. Coronal, sagittal, and MIP reformations were obtained. Automated dose lowering techniques and/or adjustment according to patient size were utilized for this exam. CT DOSE: 1889.22 mGy.cm Comparison: None available at the time of this dictation. FINDINGS: Lungs and pleura: Normal. Heart and pericardium: Heart size is normal. No pericardial effusion. Vessels: No aortic dissection or intramural hematoma is seen. Ascending aorta measures up to 49 mm in diameter. Mediastinum and flash: Unremarkable. Chest wall and lower neck: Unremarkable. Abdomen: A hiatal hernia is seen. Bones: Degenerative changes in the thoracic spine. IMPRESSION: No acute abnormality and in particular no evidence of acute aortic injury. ACT 112: Negative or not required by law. Electronically signed by: Antony Barrett M.D. 05/30/2024 5:28 PM ECG Additional Comments: ECG revealed sinus bradycardia with first-degree AV block at 53 bpm; QTc 379 Code Status & VTE Plan Code Status Full code (discussed with both patient and patient's friend, Ban, at bedside; patient reports that he does not have an advanced directive or power of commonwealth attorney, but would want his friend Ban to be medical proxy in an emergency situation) VTE Prophylaxis Plan VTE Prophylaxis will be ordered: Yes Supervising Physician Co-Signing Physician Notes I personally saw and examined the patient. I independently reviewed the labs, EKG, imaging, problem list, medication list, past medical history and family history. I verified all steel points and agree with Chilo Torres PA-C with the following exceptions and/or additions: 73 year old male presents to the ER with chest pain worse on exertion for the last month. It is getting more frequent with worsening severity slowly progressive over last month. O/E HS RRR, systolic and diastolic murmurs, Chest CTAB, Abdo SNT A/P Chest pain - discussed with Dr Spann and suspected to be due to his thoracic aortic aneurysm. Plan to observe overnight and Dr Spann will discuss with [facility] for potential transfer versus expedited outpatient workup tomorrow. No current dissection on CT. Patient also has GERD therefore will trial Maalox and famotidine to see if this helps but given exertional component this is less likely. PG Care Time/CCT Total # of Minutes Spent Total Time Spent with Patient: Total time spent is greater than 50% in coordination of care (as documented) at patient's floor/unit and/or counseling patient: Coding [place] [address] INT INP/OBS CARE 3/75MIN Patient Type Established Medical Decision Making High Complexity Diagnoses Chest pain R07.9 Thoracic aortic aneurysm I71.2 Tobacco use Z72.0 Sleep apnea G47.30 Gastroesophageal reflux disease K21.9 Hypertension I10
[2024-05-30] MEDS: FAMOTIDINE 20 MG TAB PO ONE (19:17)
[2024-05-30] MEDS: ALUMINUM/MAGNESIUM SUSP 30 ML UDC PO STA (19:17)
[2024-05-30] MEDS ORDERED: ONDANSETRON INJ 2 MG/ML 2 ML VIAL IV PRN (21:39)
[2024-05-30] MEDS ORDERED: ALBUTEROL HFA 8 GM INHALER INH PRN (21:39)
[2024-05-30] MEDS ORDERED: BACLOFEN 10 MG TAB PO PRN (21:39)
[2024-05-30] MEDS: ACETAMINOPHEN 325 MG TAB PO PRN (22:10)
[2024-05-30] MEDS: amLODIPine BESYLATE 5 MG TAB PO SCH (23:07)
[2024-05-30] MEDS: busPIRone 7.5 MG TAB PO SCH (23:08)
[2024-05-31 06:22] LABS: Basophils # (auto) 0.06 K/uL (0.00-0.20); Basophils % (auto) 0.6 %; Eosinophils # (auto) 0.61 K/uL (0.00-0.50); Eosinophils % (auto) 6.1 %; Hematocrit (blood only) 45.6 % (42.0-52.0); Hemoglobin 15.3 g/dl (14.0-18.0); Immature Granulocytes # (auto) 0.03 K/uL (0.01-0.20); Immature Granulocytes % (auto) 0.3 %; Lymphocytes % (auto) 21.8 %; Mean Corpuscular Hemoglobin 32.9 pg (25.0-34.0); Mean Corpuscular Hgb Conc 33.6 g/dL (32.0-36.0); Mean Corpuscular Volume 98.1 fL (80.0-100.0); Monocytes # (auto) 1.02 K/uL (0.11-0.59); Monocytes % (auto) 10.1 %; Neutrophils # (auto) 6.16 K/uL (1.40-6.50); Neutrophils % (auto) 61.1 %; Platelet Count 205 K/uL (130-400); RDW Coefficient of Variation 12.6 % (11.5-14.5); RDW Standard Deviation 45.6 fL (36.4-46.3); Red Blood Count 4.65 M/uL (4.70-6.10); White Blood Count 10.08 K/ul (4.8-10.8)
[2024-05-31 06:33] LABS: BUN Creatinine Ratio 14.7 (10-20); Calcium 9.2 mg/dl (8.6-10.3); Creatinine Clr Calc Pharmacy 83.4 ml/min; Est GFR (African American) 78.2 ml/min; Est GFR (Non-African American) 67.5 ml/min
[2024-05-31 06:40] LABS: Troponin I High Sensitivity 16.7 pg/ml (0-20)
[2024-05-31 07:40] VITALS: RESP 16
[2024-05-31] MEDS: ATORVASTATIN 10 MG TAB PO SCH (08:22)
[2024-05-31] MEDS: FAMOTIDINE 20 MG TAB PO SCH (08:23)
[2024-05-31] MEDS: FEXOFENADINE 60 MG TAB PO SCH (08:23)
[2024-05-31] MEDS: DULoxetine HCL 60 MG CAP PO SCH (08:23)
[2024-05-31] MEDS: hydroCHLOROthiazide 25 MG TAB PO SCH (08:23)
[2024-05-31] MEDS: MONTELUKAST SODIUM 10 MG TABLET PO SCH (08:24)
[2024-05-31] MEDS: LOSARTAN POTASSIUM 50 MG TAB PO SCH (08:24)
[2024-05-31] MEDS: METOPROLOL SUCC 25MG EXT REL TAB PO SCH (09:37)
[2024-05-31] MEDS: PANTOprazole 40 MG TAB PO SCH (10:08)
[2024-05-31 11:00] VITALS: BP 150/84; PULSE 58; TEMP 98.1; O2SAT 94
--- NOTE | 2024-05-31 12:55 | Discharge Summary ---
Discharge Summary Date of Service May 31, 2024 Principal Dx & Hospital Course #1 = Principal Diagnosis (1) Chest pain: Worsening chest pain at rest and with exertion x 1 month Patient saw Cardiology (Dr. Spann) on 05/30 for an echocardiogram, and was sent in due to concern for progression of CP Chest CTA on arrival did not show acute abnormality and in particular no evidence of acute aortic injury Ascending aorta measuring up to 49mm in diameter Prior CTA chest on 12/25/23 measured ascending aorta at ~49mm (unchanged) Troponin WNL x3 Aspirin 324 mg p.o. given in the ED Manual BP taken in both arms approximately equivalent 124/68 and left arm; 110/68 and right arm Cardiology consult appreciated-not dictated yet but discussed with Dr. Spann prior to discharge - not indicated for emergent transfer - follow up with [facility] outpatient to arrange surgery - no medication changes (2) Thoracic aortic aneurysm: See above (3) Tobacco use: Everyday tobacco cigarette smoker; 0.5 PPD Continue to encourage cessation (4) Sleep apnea: CPAP HS (5) Gastroesophageal reflux disease: Continue famotidine + PPI (6) Hypertension: Continue metoprolol, losartan, amlodipine, HCTZ Plan Disposition: Discharge to home today, plan for outpatient surgery at [facility] Discussed case with Dr. Spann Notes For Next Care Provider sent in by blow up operator during echo. No acute NH or worsening of aortic aneurysm. Plan for referral to [facility] on an outpatient basis to have aneurysm repaired. Medication Changes From Visit None Admission HPI Per Admitting Provider Paul is a 73-year-old male with PMH of thoracic aortic aneurysm, HLD, COPD, anxiety, Sharif's esophagus, sick sinus syndrome, HTN, sleep apnea, aortic valve insufficiency, and hypercholesteremia. He presented at the behest of Dr. Spann on 05/30 over concern for a progression of chest pain. Patient has been having intermittent, midsternal/left-sided chest pain that has been worsening over the past month. He endorses chest pain both at rest and with exertion. He also has associated dyspnea on exertion. While the chest pain was intermittent before, he reports that recently it has been constant. He characterizes it as a dull, achy pain that he rates rates it 6/10 at present; 8/10 at worst. Radiation to the left shoulder, and occasionally between the shoulder blades. He reports he does have a "stabbing" pain between his shoulder blades at least once per week. He reports he does take Tylenol (3 tablets at a time) at home, which alleviates the pain. He reports he has had a significant headache today; he does have a history of headaches, but today it is worse for him. No recent injuries to the chest wall, flanks, or back. Additional symptoms include numbness and tingling in his arms over the past month. Patient reports that he took all of his regular morning medications today; no recent change in med ications. No supplemental oxygen at baseline, but he does use CPAP at night. He is a current everyday tobacco cigarette smoker; 0.5 PPD. He also reports daily alcohol use; last drink was last night on 05/29; he reports he was drinking [place] apple vodka (3 drinks) +1 beer; he averages around 4 drinks per day. No PMH of NH or diabetes to his knowledge. 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 He does have a history of hypertension and hyperlipidemia. No prior thoracic surgeries. Patient is hypertensive at 153/86 and bradycardic at 49 bpm at time of admission. ED course: Aspirin 324 mg p.o. ROS: Patient endorses midsternal/left-sided chest pain at rest, headache, night sweats, SOB at rest and with exertion, intermittent heart racing, dry cough, diarrhea x 2 days, and numbness and tingling in his arms that has been new for him over the past month. Patient denies fever, chills, dizziness/lightheadedness, chest palpitations, hemoptysis, abdominal pain, N/V, melena, burning with urination, or blood in the urine or stool. Discharge Exam General: NAD, VS as above, appears well, dressed in street close. Resp: normal respiratory effort, lungs clear to auscultation CV: RRR, + murmur, Extremities: Moves all extremities Neuro: A&O x3, Discharge Plan Discharge Items Patient Disposition: Home - Self-Care Reason For Visit: CHEST PAIN, CONCERN FOR AORTIC DISSEC Discharge Diagnosis: Stable Aortic Aneurysm Activity: Resume your previous activity Non-emergency contact: Primary Care Provider Call non-emergency contact if: you have any medication questions and your pain is worsening Follow-up/Referrals: Carmela Ramos DO [Primary Care Provider] - 06/05/24 11:00 am (PCP follow Qiana Rothman 11am) Diet: Heart Healthy and Low Sodium (2gm) Addtl Attending Provider Instructions: Mr. Caro, You were hospitalized after worsening chest pain and being sent over by your blow up operator. Thankfully the CT scan did not show any change in your aortic aneurysm. Your blood work did not show that you are having a heart attack. You were evaluated by Dr. Spann who did not recommend any immediate intervention but we will be referring you down to [facility] to have your aortic aneurysm repaired. He did not recommend any changes to your medications. Until you are able to have the surgery it is important to minimize your risk factors this would include no heavy lifting, smoking sensation, following a heart healthy diet and limiting sodium intake and maintaining good control of your blood pressure. If you do not hear from someone at [facility] within the next week, please follow up with Dr. Spann's office. Make an appointment to see your PCP within the next 7-10 days. CONTACT YOUR PRIMARY CARE PROVIDER if you experience any of the following: Shortness of breath or difficulty breathing Fevers or chills Feeling tired with normal activity or experiencing dizziness or fainting Difficulty following your treatment plan, or difficulty taking medications CALL 911 OR GO TO THE EMERGENCY DEPARTMENT if you experience any of the following: Severe abdominal pain or nausea/vomiting Severe chest pain, or chest pain that radiates (moves) to your jaw or arm Sudden, severe shortness of breath or difficulty breathing Thank you for allowing us to participate in your care. Pending Studies at Discharge: No Stand-Alone Forms: My [facility], Smoking Cessation Medications and DC Order Prescriptions: Continued baclofen 10 mg tablet 10 mg PO BID PRN (Reason: pain/spasm) Qty: 60 0RF albuterol sulfate 90 mcg/actuation HFA aerosol inhaler 2 puff INH QID PRN (Reason: shortness of breath or wheezing) Qty: 18 0RF famotidine 20 mg tablet 20 mg PO BID Qty: 60 5RF hydrochlorothiazide 25 mg tablet 25 mg PO DAILY Qty: 90 1RF losartan 100 mg tablet 100 mg PO DAILY Qty: 90 1RF montelukast 10 mg tablet 10 mg PO DAILY Qty: 90 1RF amlodipine 10 mg tablet 10 mg PO HS Qty: 90 1RF lansoprazole 30 mg capsule,delayed release(DR/EC) 30 mg PO QAM Qty: 90 1RF Rx Instructions: 30 mg PO TAKE ONE CAPSULE BY MOUTH IN THE MORNING ONE HALF HOUR PRIOR TO BREAKFAST.; buspirone 7.5 mg tablet 7.5 mg PO BID Qty: 60 5RF metoprolol succinate 25 mg tablet extended release 24 hr 25 mg PO DAILY Qty: 90 1RF tadalafil 20 mg tablet 20 mg PO DAILY PRN (Reason: sexual activity) Qty: 20 1RF Rx Instructions: administer approximately 30min before sexual activity; do not use more than 1 dose per 24hrs fexofenadine [Aleshia Allergy] 180 mg tablet 60 mg PO DAILY PreserVision AREDS 4,296 mcg-226 mg-90 mg capsule 1 cap PO BID aspirin [Adult Low Dose Aspirin] 81 mg tablet,delayed release (DR/EC) 81 mg PO DAILY atorvastatin 10 mg tablet 10 mg PO DAILY duloxetine 60 mg capsule,delayed release(DR/EC) 60 mg PO DAILY Rx Instructions: TAKE 1 CAPSULE EVERY DAY Discharge Orders: Discharge Order (Routine); Ordered 05/31/24 Ordered By: Chelly Zamora Admission Data Admit Date/Time: 05/30/24 19:21 Attending Provider: Patrica Tam Admit Provider: Mustapha Bowser Primary Care Provider: Carmela Ramos Other Providers: Mustapha Bowser; Alex Spann Other Interventions: Discharge Summary Assessment (RN) Last Done: 05/31/24 13:03 Hospital Stay Data Consultations 05/30/24 17:57 ED Decision to Admit Stat 05/30/24 19:10 Consult Cardiology Routine Diagnostic Imagining Performed Chest X-Ray 05/30/24 16:32 XR chest 1V not portable CLINICAL HISTORY: Chest pain, nonspecific TECHNIQUE: Single frontal radiograph of the chest was obtained. Comparison: Comparison is made to rib series 03/19/2023 FINDINGS: Exam is limited by underpenetration. Cardiomegaly is noted. The lungs are clear. No evidence of pleural effusion or pneumothorax. IMPRESSION: No acute chest disease. ACT 112: Negative or not required by law. Electronically signed by: Antony Barrett M.D. 05/30/2024 5:01 PM Chest CTA 05/30/24 16:34 CT angio chest dissec wo/w con CLINICAL HISTORY: ?dissection, ref by Dr Spann TECHNIQUE: Multidetector row helical CT of the chest was performed before and after injection of IV contrast. Coronal, sagittal, and MIP reformations were obtained. Automated dose lowering techniques and/or adjustment according to patient size were utilized for this exam. CT DOSE: 1889.22 mGy.cm Comparison: None available at the time of this dictation. FINDINGS: Lungs and pleura: Normal. Heart and pericardium: Heart size is normal. No pericardial effusion. Vessels: No aortic dissection or intramural hematoma is seen. Ascending aorta measures up to 49 mm in diameter. Mediastinum and flash: Unremarkable. Chest wall and lower neck: Unremarkable. Abdomen: A hiatal hernia is seen. Bones: Degenerative changes in the thoracic spine. IMPRESSION: No acute abnormality and in particular no evidence of acute aortic injury. ACT 112: Negative or not required by law. Electronically signed by: Antony Barrett M.D. 05/30/2024 5:28 PM Pending Results Patient Have Any Pending Studies at Discharge: No Discharge Instructions Given to Patient (Per Discharging Provider) Mr. Caro, You were hospitalized after worsening chest pain and being sent over by your blow up operator. Thankfully the CT scan did not show any change in your aortic aneurysm. Your blood work did not show that you are having a heart attack. You were evaluated by Dr. Spann who did not recommend any immediate intervention but we will be referring you down to [facility] to have your aortic aneurysm repaired. He did not recommend any changes to your medications. Until you are able to have the surgery it is important to minimize your risk factors this would include no heavy lifting, smoking sensation, following a heart healthy diet and limiting sodium intake and maintaining good control of your blood pressure. If you do not hear from someone at [facility] within the next week, please follow up with Dr. Spann's office. Make an appointment to see your PCP within the next 7-10 days. CONTACT YOUR PRIMARY CARE PROVIDER if you experience any of the following: Shortness of breath or difficulty breathing Fevers or chills Feeling tired with normal activity or experiencing dizziness or fainting Difficulty following your treatment plan, or difficulty taking medications CALL 911 OR GO TO THE EMERGENCY DEPARTMENT if you experience any of the following: Severe abdominal pain or nausea/vomiting Severe chest pain, or chest pain that radiates (moves) to your jaw or arm Sudden, severe shortness of breath or difficulty breathing Thank you for allowing us to participate in your care. Supervising Physician Co-Signing Physician Notes KYM Supervision Note: I personally saw and examined the patient. I verified all steel points and agree with KYM Zamora with the following exceptions and/or additions: S-patient feeling well, says his chest pain is gone currently. All testing reviewed and KYM Zamora spoke with cardiology who felt patient was stable for discharged home O- Vitals reviewed Gen: [AAOx3, NAD] HEENT: [anicteric sclerae, EOMI] CV: [RRR no mgr nl S1S2] Pulm: [CTAB no wcr] [id number]old male here with atypical chest pain and history of thoracic aortic aneurysm. Aneurysm is stable and no evidence of dissection or rupture No evidence of acute coronary syndrome Stable for discharged home Total Time Total Time Spent Total Time Spent (In Minutes): Time spent day of discharge 32 minutes including direct patient care, medication reconciliation, documentation, review of labs and images, and coordination of care. Coding Level of Care Code 99358 INP/OBS DISCH >30 MIN Diagnoses Chest pain R07.9 Thoracic aortic aneurysm I71.2 Tobacco use Z72.0 Sleep apnea G47.30 Gastroesophageal reflux disease K21.9 Hypertension I10
--- NOTE | 2024-05-31 22:34 | Electrocardiogram Report ---
Test Reason : Blood Pressure : */* mmHG Vent. Rate : 53 BPM Atrial Rate : 53 BPM P-R Int : 220 ms QRS Dur : 78 ms QT Int : 404 ms P-R-T Axes : 4 -27 0 degrees QTcB Int : 379 ms Sinus bradycardia with 1st degree A-V block Otherwise normal ECG When compared with ECG of 05-Jul-2013 10:15, No significant change Confirmed by Bruno Cohen ([id number]) on 05/31/2024 10:33:51 PM Referred By: Alex Spann Confirmed By: Bruno Cohen
== END 2024-05-31 13:17 | disposition home or self-care (01) ==
LOC: 2E 16:14 → ED 16:14 → SUATTDRO 19:21 → 2E 21:28